=== PATIENT | male | born 1990 | race Caucasian/White ===

== ENCOUNTER 2018-11-08 14:36 | Emergency (ER) | payer OTHER ==
[2018-11-08 14:51] VITALS: RESP 18
--- NOTE | 2018-11-08 15:47 | RAD ---
Date of service: 11/08/2018 HISTORY: abdominal pain COMPARISON: No prior. FINDINGS: LUNGS: The lungs are well inflated and clear. PLEURA: No pleural effusions or pneumothorax. CARDIOVASCULAR: The heart is normal in size. No aortic atherosclerotic calcifications present. OSSEOUS STRUCTURES: Within normal limits for the patient's age. VISUALIZED UPPER ABDOMEN: Normal. OTHER FINDINGS: None. IMPRESSION: No active pulmonary disease.
[2018-11-08 16:00] LABS: ALB/GLOB RATIO 1.3 (1.1-1.8); ALBUMIN 4.2 g/dL (3.0-4.8); ALT/SGPT 15 U/L (7-56); AMYLASE 101 U/L (35-125); AST/SGOT 24 U/L (17-59); BLOOD UREA NITROGEN 14 mg/dL (7-21); CALCIUM 9.3 mg/dL (8.4-10.5); GFR NON-AFRICAN AMERICAN > 60; LIPASE 107 U/L (23-300)
[2018-11-08 16:05] LABS: BASO # 0.02 K/mm3 (0.0-2.0); BASO % 0.4 % (0.0-3.0); EOS # 0.1 (0.0-0.7); EOS % 1.8 % (1.5-5.0); HEMOGLOBIN 14.4 g/dL (14.0-18.0); LYMPH # 2.2 (1.2-3.4); LYMPH % 40.3 % (22.0-35.0); MEAN CELL VOLUME 90.9 fl (80.0-105.0); MEAN CORPUSCULAR HEMOGLOBIN 30.4 pg (25.0-35.0); MEAN CORPUSCULAR HGB CONC 33.5 g/dl (31.0-37.0); MEAN PLATELET VOLUME 10.5 fl (7.0-11.0); MONO # 0.6 (0.1-0.6); RBC 4.73 10^6/uL (3.5-6.1); RED CELL DISTRIBUTION WIDTH 13.1 % (11.5-14.5); WHITE BLOOD COUNT 5.5 10^3/uL (4.5-11.0)
[2018-11-08 16:09] LABS: INR 1.07; PARTIAL THROMBOPLASTIN TIME 34.3 Seconds (26.9-38.3); PROTHROMBIN TIME 11.9 SECONDS (9.4-12.5)
[2018-11-08 16:12] LABS: TROPONIN I < 0.01 ng/mL
[2018-11-08] MEDS ORDERED: Iohexol 240 (50 ml) ONE (16:36)
--- NOTE | 2018-11-08 16:48 | ED PDOC ---
Arrival/HPI - General Chief Complaint: GI Problem Time Seen by Provider: 11/08/18 14:40 Historian: Patient - History of Present Illness Narrative History of Present Illness (Text): 11/08/18 16:45 28 year old male, whose past medical history includes hemmoroids presents to the emergency department complaining of rectal bleeding for a few months. Patient states for the last year he has intermittent episodes of rectal bleeding during bowel movements, but recently it has been happening more frequently. Today he reports when he had bowel movement he had a large amount of bright red blood both on the tissue and in the toilet bowl. Recently his bowel movements have been more mucousy and sometimes he has blood when he passes gas. Patient is tolerating PO and his bowel movements are brown and soft, last this morning. He denies recent travel, changes in diet, abdominal pain, fever, rectal pain, palpitations, chills, headache, dizziness, chest pain, shortness of breath, dyspnea on exertion, cough, nausea, vomiting, diarrhea, back pain, neck pain, or any other complaint. Time/Duration: > month Symptom Onset: Gradual Symptom Course: Intermittent Activities at Onset: Light Context: Home Past Medical History - Provider Review Nursing Documentation Reviewed: Yes - Psychiatric Hx Substance Use: No Family/Social History - Physician Review Nursing Documentation Reviewed: Yes Family/Social History: No Known Family HX Smoking Status: Never Smoked Hx Alcohol Use: Yes Frequency of alcohol use: Socially Hx Substance Use: No Allergies/Home Meds Allergies/Adverse Reactions: Allergies No Known Allergies Allergy (Verified 11/08/18 14:51) Home Medications: Home Meds Medication Instructions Recorded Confirmed No Known Home Med 11/08/18 11/08/18 Review of Systems - Physician Review All systems were reviewed & negative as marked: Yes - Review of Systems Constitutional: Normal. absent: Fevers Eyes: Normal. absent: Vision Changes ENT: Normal. absent: Sore Throat, Sinus Congestion Respiratory: Normal. absent: SOB, Cough Cardiovascular: Normal. absent: Chest Pain, Palpitations, Syncope Gastrointestinal: Hematochezia. absent: Abdominal Pain, Stool Changes, Diarrhea, Nausea, Vomiting, Appetite Changes, Hematemesis Genitourinary Male: Other (rectal bleeding). absent: Dysuria, Frequency, Hematuria Musculoskeletal: Normal. absent: Back Pain, Neck Pain Skin: Normal. absent: Rash Neurological: Normal. absent: Headache, Dizziness Endocrine: Normal Hemo/Lymphatic: Normal Psychiatric: Normal Physical Exam Vital Signs Reviewed: Yes Vital Signs Temp Pulse Resp BP Pulse Ox 11/08/18 14:49 98.2 F 66 18 126/72 98 Temperature: Afebrile Blood Pressure: Normal Pulse: Regular Respiratory Rate: Normal Appearance: Positive for: Well-Appearing, Non-Toxic, Comfortable Pain Distress: None Mental Status: Positive for: Alert and Oriented X 3 - Systems Exam Head: Present: Atraumatic, Normocephalic Pupils: Present: PERRL Extroacular Muscles: Present: EOMI Conjunctiva: Present: Normal Mouth: Present: Moist Mucous Membranes Neck: Present: Normal Range of Motion. No: Meningeal Signs Respiratory/Chest: Present: Clear to Auscultation, Good Air Exchange. No: Respiratory Distress, Accessory Muscle Use Cardiovascular: Present: Regular Rate and Rhythm, Normal S1, S2. No: Murmurs Abdomen: Present: Normal Bowel Sounds. No: Tenderness, Distention, Peritoneal Signs, Rebound, Guarding Rectal: Present: Gross Blood, Normal Rectal Tone. No: Rectal Tenderness, Melena, Hemorrhoids, Fissures, Nodule/Mass/Lesions Back: Present: Normal Inspection. No: CVA Tenderness Upper Extremity: Present: Normal Inspection, Normal ROM, NORMAL PULSES, Neurovascularly Intact, Capillary Refill < 2s. No: Cyanosis, Edema, Temperature Abnormalties Lower Extremity: Present: Normal Inspection, NORMAL PULSES, Normal ROM, Sid rovascularly Intact, Capillary Refill < 2 s. No: Edema, Temperature Abnormalties Neurological: Present: GCS=15, CN II-XII Intact, Speech Normal, Motor Func Grossly Intact, Normal Sensory Function, Gait Normal Skin: Present: Warm, Dry, Normal Color. No: Rashes Psychiatric: Present: Alert, Oriented x 3, Normal Insight, Normal Concentration, Normal Affect, Normal Mood Medical Decision Making ED Course and Treatment: 11/08/18 16:45 Impression: 28 year old male who presents to the emergency department complaining of rectal bleeding. Plan: --Bloodwork --Type and Screen --UA --CXR --EKG --CT Abd/Pelvis with PO and IV contrast Prior Visits: Notes and results from previous visits were reviewed. Patient with bright red blood on rectal exam, no hemorrhoids or rectal tenderness Progress Notes: 11/08/2018 19:26 Abd/Pelvis CT IMPRESSION: No acute intra-abdominal or pelvic abnormality. Mildly enlarged prostate gland. Apparent thickening posterior wall of the rectum which may be related to incomplete distention or inspissated fecal material with mucosal abnormality less likely. Clinical correlation advised. Dictator: Oswaldo Carrera MD Labwork reviewed, h/h normal, no anemia; no leukocytosis, otherwise unremarkable EKG unremarkable for acute change CXR unremarkable Patient continues to deny abdominal pain. Patient given copies of his diagnostic testing, advised GI, urologist, and PMD followup. Diagnostic testing results and plan of care discussed with patient. Strict instructions given regarding prescription use, importance of followup, and signs/symptoms to return to ER including fever, chills, abdominal pain, or any other new/worsening symptoms. Pt verbalized understanding of discussion. Patient is A&Ox3, ambulating with steady gait, with vital signs stable for discharge. - Lab Interpretations Lab Results: PT 11.9 SECONDS (9.4-12.5) 11/08/18 15:35 INR 1.07 11/08/18 15:35 APTT 34.3 Seconds (26.9-38.3) 11/08/18 15:35 Troponin I < 0.01 ng/mL 11/08/18 15:35 Total Bilirubin 0.5 mg/dL (0.2-1.3) 11/08/18 15:35 AST 24 U/L (17-59) 11/08/18 15:35 ALT 15 U/L (7-56) 11/08/18 15:35 Alkaline Phosphatase 80 U/L (38-126) 11/08/18 15:35 Total Protein 7.4 g/dL (5.8-8.3) 11/08/18 15:35 Albumin 4.2 g/dL (3.0-4.8) 11/08/18 15:35 Globulin 3.2 gm/dL 11/08/18 15:35 Albumin/Globulin Ratio 1.3 (1.1-1.8) 11/08/18 15:35 Amylase 101 U/L (35-125) 11/08/18 15:35 Lipase 107 U/L (23-300) 11/08/18 15:35 11/08/18 15:35 11/08/18 15:35 Lab Results 11/08/18 16:50: Blood Type Confirm O POSITIVE 11/08/18 15:35: Blood Type O POSITIVE, Antibody Screen Negative, BBK History Checked No verified bt 11/08/18 15:35: Sodium 139, Potassium 4.2, Chloride 104, Carbon Dioxide 30, Anion Gap 10, BUN 14, Creatinine 1.2, Est GFR ( Amer) > 60, Est GFR (Non- Af Amer) > 60, Random Glucose 89, Calcium 9.3, Total Bilirubin 0.5, AST 24, ALT 15, Alkaline Phosphatase 80, Lactate Dehydrogenase 303 L, Total Creatine Kinase 114, Troponin I < 0.01, Total Protein 7.4, Albumin 4.2, Globulin 3.2, Albumin/Globulin Ratio 1.3, Amylase 101, Lipase 107 11/08/18 15:35: PT 11.9, INR 1.07, APTT 34.3 11/08/18 15:35: WBC 5.5, RBC 4.73, Hgb 14.4, Hct 43.0, MCV 90.9, MCH 30.4, MCHC 33.5, RDW 13.1, Plt Count 189, MPV 10.5, Neut % (Auto) 46.5 L, Lymph % (Auto) 40.3 H, Pope % (Auto) 11.0 H, Eos % (Auto) 1.8, Baso % (Auto) 0.4, Lymph # (Auto) 2.2, Pope # (Auto) 0.6, Eos # (Auto) 0.1, Baso # (Auto) 0.02, Absolute Neuts (auto) 2.54 I have reviewed the lab results: Yes - RAD Interpretation Radiology Orders: 11/08/18 15:02 CHEST PORTABLE [RAD] Stat 11/08/18 16:00 ABD PELVIS PO & IV CONTRAST [CT] Stat - EKG Interpretation EKG Interpretation (Text): Rate 55; Sinus bradycardia; Normal Intervals; No STEMI or other signs of acute ischemia Interpreted by ED Physician: Yes Type: 12 lead EKG - Scribe Statement The provider has reviewed the documentation as recorded by the Scribe Oly Beckford Provider Scribe Attestation: All medical record entries made by the Scribe were at my direction and personally dictated by me. I have reviewed the chart and agree that the record accurately reflects my personal performance of the history, physical exam, medical decision making, and the department course for this patient. I have also personally directed, reviewed, and agree with the discharge instructions and disposition. Disposition/Present on Arrival - Present on Arrival Any Indicators Present on Arrival: No History of DVT/PE: No History of Uncontrolled Diabetes: No Urinary Catheter: No History of Decub. Ulcer: No History Surgical Site Infection Following: None - Disposition Have Diagnosis and Disposition been Completed?: Yes Diagnosis: Rectal bleeding Disposition: HOME/ ROUTINE Disposition Time: 19:30 Patient Plan: Discharge Condition: STABLE Discharge Instructions (ExitCare): Gastrointestinal Bleeding (DC), Bloody Stools, Adult (DC) Additional Instructions: Increase fluids and fiber Followup with urology within 2 days Followup with GI within 2 days Followup with primary doctor within 2 days Return to ER with any new/worsening symptoms Referrals: [facility] [Outside] - Follow up with primary [facility] [Outside] - Follow up with primary Parker Castillo MD [Staff Provider] - Follow up with primary Rukhsana Reynolds MD [Medical Doctor] - Follow up with primary Wencelsao Thibodeaux DO [Staff Provider] - Follow up with primary Forms: [facility] (K[place]akh), WORK NOTE
[2018-11-08] MEDS ORDERED: Iohexol 350 MG/100 ML VIAL ONE (18:35)
[2018-11-08 19:49] VITALS: BP 131/69; PULSE 77; TEMP 98; O2SAT 99
--- NOTE | 2018-11-09 08:41 | CT ---
Date of service: 11/08/2018 PROCEDURE: CT Abdomen and Pelvis with contrast HISTORY: rectal bleeding COMPARISON: None available. TECHNIQUE: CT scan of the abdomen and pelvis was performed after administration of intravenous contrast. Oral contrast was administered. Coronal and sagittal reformatted images were obtained. Contrast dose: 100 mL Omnipaque 350 Radiation dose: Total exam DLP = 277.38 mGy-cm. This CT exam was performed using one or more of the following dose reduction techniques: Automated exposure control, adjustment of the mA and/or kV according to patient size, and/or use of iterative reconstruction technique. FINDINGS: LOWER THORAX: The visualized lungs are clear. LIVER: Normal in size with homogeneous enhancement. No gross lesion or ductal dilatation. GALLBLADDER AND BILE DUCTS: Well distended. No calcified gallstones, wall thickening or pericholecystic fluid. PANCREAS: Normal in size with homogeneous enhancement. No gross lesion or ductal dilatation. SPLEEN: Normal in size and appearance. ADRENALS: No discrete nodule. KIDNEYS AND URETERS: Normal in size with homogeneous enhancement. No hydronephrosis. No solid mass. VASCULATURE: No aortic aneurysm. There are no aortic atherosclerotic calcifications or mural plaque present. BOWEL: The small bowel loops are normal in caliber. The colon is grossly normal in appearance. Evaluation of the rectum is limited as oral contrast has not progressed to the rectum at the time scan. There is apparent mild circumferential mural thickening in the rectum. No bowel obstruction. APPENDIX: Normal appendix. PERITONEUM: No free fluid. No free air. LYMPH NODES: No enlarged lymph nodes. BLADDER: Well distended and normal in appearance. REPRODUCTIVE: The prostate gland is normal in size. BONES: No acute fracture. Within normal limits for the patient's age. OTHER FINDINGS: None. IMPRESSION: No acute abdominal or pelvic abnormality. Evaluation of the rectum is limited as oral contrast has not progressed to the rectum at the time of scanning. Apparent mild circumferential mural thickening in the rectum is nonspecific and could be related to underdistention however acute nonspecific infectious/inflammatory proctitis is also a consideration. A preliminary report was provided by [employer].
--- NOTE | 2018-11-09 10:25 | CARD ---
APPROVED REPORT Date of service: 11/08/2018 EKG Measurement Heart [id number] <Conclusion> Sinus bradycardia Possible septal infarct, age undetermined Abnormal ECG
== END 2018-11-08 19:57 | disposition home or self-care (01) ==
LOC: ED 14:36 → MERGE 14:36 → ED 19:57
DX: K62.5 Hemorrhage of anus and rectum (principal)
CPT/HCPCS: 71045; 74177; 80053; 82150; 82550; 83615; 83690; 84484; 85025; 85610; 85730; 86850; 86900; 93005; 99283; Q9966; Q9967